=== PATIENT | male | born 1985 | race African-American/Black ===

== ENCOUNTER 2018-10-26 20:45 | Emergency (ER) | payer SELFPAY ==
[~2018-10-26] VITALS: Ht 180.3 cm; Wt 60.3 kg
[2018-10-26 23:16] VITALS: BP 132/83
[2018-10-26] MEDS ORDERED: SILVER SULFADIAZINE 1 % TOPICAL CREAM 50GM TOP ONE (23:45)
[2018-10-26] MEDS ORDERED: DERMOPLAST 60ML BOTTLE TOP ONE ×2 (23:45→23:53)
[2018-10-26] MEDS ORDERED: ACETAMINOPHEN/CODEINE#3 (300/30mg) TAB PO ONE (23:45)
[2018-10-27] MEDS: cefTRIAXone SOD 1,000 MG VL IM ONE ×2 (00:32→00:35)
[2018-10-27] MEDS: methylPREDNISolone SOD SUCC 125 MG/2 ML VL IM ONE ×2 (00:32→00:35)
== END 2018-10-27 01:03 | disposition home or self-care (01) ==
LOC: ER 20:48
DX: T24.202A Burn of second degree of unspecified site of left lower limb, except ankle and foot, initial encounter (principal); T24.201A Burn of second degree of unspecified site of right lower limb, except ankle and foot, initial encounter; X58.XXXA Exposure to other specified factors, initial encounter; Y93.89 Activity, other specified; Y99.8 Other external cause status; Y92.89 Other specified places as the place of occurrence of the external cause
CPT/HCPCS: 16020; 99284; J2930; J7030; J0696

== ENCOUNTER 2023-04-11 18:44 | Emergency (ER) | payer SELFPAY ==
[~2023-04-11] VITALS: Ht 180.3 cm; Wt 62.0 kg
[2023-04-11] MEDS ORDERED: TETANUS-DIPTH-ACEL PERTUSSIS 0.5ML SYR Tdap IM ONE (22:45)
[2023-04-11] MEDS ORDERED: CEPH500C PO (22:48)
[2023-04-11] MEDS ORDERED: IBUP-1456 PO (22:48)
[2023-04-11] MEDS ORDERED: BACITRACIN TOP OINT 1 UD PKG TOP ONE (23:30)
[2023-04-11 23:45] VITALS: BP 126/84; PULSE 89; RESP 18; TEMP 98.4; O2SAT 98
== END 2023-04-11 23:45 | disposition home or self-care (01) ==
LOC: ER 18:44
DX: S61.232A Puncture wound without foreign body of right middle finger without damage to nail, initial encounter (principal); W25.XXXA Contact with sharp glass, initial encounter; Y93.89 Activity, other specified; Y92.89 Other specified places as the place of occurrence of the external cause; Y99.8 Other external cause status
CPT/HCPCS: 29130; 73130; 90471; 90715